=== PATIENT | female | born 1930 | race Caucasian/White ===

== ENCOUNTER → 2016-08-04 | Outpatient (CLI) | payer OTHER | LOC: BHFA 14:15 | PROVIDERS: ATTEND Internal Medicine Cardiovascular Disease | DX: I25.10 Atherosclerotic heart disease of native coronary artery without angina pectoris (principal); Z95.0 Presence of cardiac pacemaker; Z95.1 Presence of aortocoronary bypass graft; R60.9 Edema, unspecified; R06.09 Other forms of dyspnea; Z95.2 Presence of prosthetic heart valve ==

== ENCOUNTER → 2016-08-26 | Outpatient (CLI) | payer OTHER | LOC: BHFA 13:15 | PROVIDERS: ATTEND Internal Medicine Cardiovascular Disease | DX: I35.9 Nonrheumatic aortic valve disorder, unspecified (principal) ==

== ENCOUNTER → 2016-09-02 | Outpatient (CLI) | payer OTHER | LOC: BHFA 14:00 | PROVIDERS: ATTEND Internal Medicine Cardiovascular Disease | DX: I25.10 Atherosclerotic heart disease of native coronary artery without angina pectoris (principal) | CPT/HCPCS: 78452; 93017; A9500; J2785 ==

== ENCOUNTER 2016-10-28 07:51 | Day surgery (SDC) | payer OTHER ==
[2016-10-28] MEDS ORDERED: ASPIRIN EC 325 MG TAB PO ONE ×2 (07:56→08:26)
[2016-10-28] MEDS ORDERED: diphenhydrAMINE 25 MG CAP PO ONE ×2 (07:56→08:26)
[2016-10-28] MEDS ORDERED: NS 1,000 ML IV ONE (07:56)
[2016-10-28] MEDS ORDERED: DIAZEPAM 5 MG TAB PO ONE (07:56)
[2016-10-28] MEDS ORDERED: FAMOTIDINE 20 MG TAB PO ONE (07:56)
--- NOTE | 2016-10-28 08:21 | CPEKG ---
Heart Rate: 60 RR Interval: 1000 P-R Interval: 174 QRSD Interval: 156 QT Interval: 452 QTC Interval: 452 P [place]: 70 QRS [place]: -49 T Wave [place]: 84 EKG Severity - ABNORMAL ECG - EKG Impression: ATRIAL-PACED COMPLEXES EKG Impression: RBBB AND LAFB Electronically Signed By: Peyton Khan 28-Oct-2016 11:52:30
[2016-10-28] MEDS ORDERED: FAMOTIDINE 20 MG TAB ONE (08:26)
[2016-10-28] MEDS ORDERED: DIAZEPAM 5 MG TAB ONE (08:26)
[2016-10-28 08:42] LABS: % IMMATURE GRANULYOCYTES 0.4 % (0.0-1.1); ABSOLUTE IMMATURE GRANULOCYTES 0.03 10^3/uL (0.00-0.10); ADD DIFF? NO; ADD MORPH? NO; ADD SCAN? NO; ATYPICAL LYMPHOCYTE FLAG 0 (0-99); FRAGMENT RBC FLAG 0 (0-99); HEMATOCRIT 35.4 % (38.0-47.0); HEMOGLOBIN 12.5 g/dL (12.6-16.3); LEFT SHIFT FLG 0 (0-99); LIPEMIA HEMOLYSIS FLAG 90 (0-99); MEAN CELL HEMOGLOBIN 32.1 pg (27.9-34.1); MEAN CELL HEMOGLOBIN CONCENTR. 35.3 g/dL (32.4-36.7); MEAN PLATELET VOLUME 9.5 fL (8.7-11.7); PLATELET CLUMPS FLAG 0 (0-99); PLATELET COUNT 165 10^3/uL (150-400); RED BLOOD CELL COUNT 3.89 10^6/uL (4.18-5.33)
[2016-10-28 09:03] LABS: ANION GAP 9 mEq/L (8-16); CALCIUM 9.1 mg/dL (8.5-10.4); CARBON DIOXIDE 21 mEq/l (22-31); CHLORIDE 102 mEq/L (97-110); CHOLESTEROL 174 mg/dL (140-220); CHOLESTEROL/HDL RATIO 2.81 RATIO (1.00-4.44); CREATININE 1.7 mg/dL (0.6-1.0); GLOMERULAR FILTRATION RATE 29; GLUCOSE 115 mg/dL (70-100); HIGH DENSITY LIPOPROTEIN 62 mg/dL (40-85); LDL/HDL RATIO 1.32 RATIO (1.00-3.22); LOW DENSITY LIPOPROTEIN 82 mg/dL (80-100); NON-HIGH DENSITY LIPOPROTEIN 112 mg/dL (90-129); POTASSIUM 4.6 mEq/L (3.5-5.2); SODIUM 132 mEq/L (134-144); TRIGLYCERIDE 153 mg/dL (35-135); VERY LOW DENSITY LIPOPROTEINS 30 mg/dL (8-25)
[2016-10-28 09:11] LABS: INR 1.07 (0.83-1.16); PROTIME(PATIENT) 13.8 SEC (12.0-15.0)
[2016-10-28] MEDS ORDERED: MIDAZOLAM 2 MG/2 ML VIAL ONE (09:37)
[2016-10-28] MEDS ORDERED: LIDOCAINE 1% 300 MG/30 ML SDV ONE (09:37)
[2016-10-28] MEDS ORDERED: IOPAMIDOL (ISOVUE-370) 150 ML BTL IV ONE (09:37)
[2016-10-28] MEDS ORDERED: fentaNYL 100 MCG/2 ML INJ ONE (09:37)
[2016-10-28] MEDS ORDERED: VERAPAMIL 5 MG/2 ML VIAL ONE (09:37)
[2016-10-28] MEDS ORDERED: HEPARIN 10,000 UNIT/10 ML MDV ONE (09:37)
--- NOTE | 2016-10-28 16:03 | CPIP ---
[f rep st] INVASIVE CARDIAC PROCEDURE DATE OF PROCEDURE: 10/28/2016 PROCEDURE: Cancellation of procedure note. HISTORY: The patient is an 86-year-old female with a history of aortic valve disease and coronary a rtery disease, who underwent single-vessel CABG and AVR in 2008, who was admitted for elective cardi ac catheterization to evaluate symptoms of dyspnea on exertion. The patient was recently started on an herbal diuretic from her chiropractor. Her baseline creatinine increased from 1.2 to 1.7 the da y of procedure. I had a discussion with the patient regarding the risks and benefits of cardiac cat heterization in the setting of renal insufficiency. We have decided to cancel the procedure, stop d iuretic therapy, repeat a CHEM 7 on Tuesday, and consider repeat cardiac catheterization the followi ng week if creatinine stabilizes. Patient will call the office for increasing symptoms. She will b e continued on her regular home medications minus the herbal diuretic and Lasix therapy. /[id number]/MODL
== END 2016-10-28 11:00 | disposition home or self-care (01) ==
LOC: FCATH 07:51
PROVIDERS: ATTEND Internal Medicine Cardiovascular Disease
DX: R06.09 Other forms of dyspnea (principal); Z53.09 Procedure and treatment not carried out because of other contraindication; N28.9 Disorder of kidney and ureter, unspecified; I35.1 Nonrheumatic aortic (valve) insufficiency; I25.10 Atherosclerotic heart disease of native coronary artery without angina pectoris; Z95.1 Presence of aortocoronary bypass graft
CPT/HCPCS: J1644; J2250; J3010; Q9967

== ENCOUNTER 2016-11-05 07:50 | Inpatient (IN) | payer OTHER ==
[2016-11-05] MEDS ORDERED: FAMOTIDINE 20 MG TAB PO ONE (07:54)
[2016-11-05] MEDS ORDERED: NS 1,000 ML IV ONE (07:54)
[2016-11-05] MEDS ORDERED: DIAZEPAM 5 MG TAB PO ONE (07:54)
[2016-11-05] MEDS ORDERED: diphenhydrAMINE 25 MG CAP PO ONE (07:54)
[2016-11-05] MEDS ORDERED: ASPIRIN EC 325 MG TAB PO ONE (07:54)
--- NOTE | 2016-11-05 08:17 | CPEKG ---
Heart Rate: 61 RR Interval: 984 P-R Interval: 162 QRSD Interval: 162 QT Interval: 452 QTC Interval: 456 P [place]: 0 QRS [place]: -56 T Wave [place]: 87 EKG Severity - ABNORMAL ECG - EKG Impression: ATRIAL-PACED COMPLEXES EKG Impression: PROBABLE LEFT ATRIAL ABNORMALITY EKG Impression: RBBB AND LAFB Electronically Signed By: Christian Metz 05-Nov-2016 08:57:56
[2016-11-05 08:31] LABS: % IMMATURE GRANULYOCYTES 0.4 % (0.0-1.1); ABSOLUTE IMMATURE GRANULOCYTES 0.03 10^3/uL (0.00-0.10); ADD DIFF? NO; ADD MORPH? NO; ADD SCAN? NO; ATYPICAL LYMPHOCYTE FLAG 0 (0-99); FRAGMENT RBC FLAG 0 (0-99); HEMATOCRIT 36.1 % (38.0-47.0); HEMOGLOBIN 13.1 g/dL (12.6-16.3); LEFT SHIFT FLG 0 (0-99); LIPEMIA HEMOLYSIS FLAG 90 (0-99); MEAN CELL HEMOGLOBIN 32.8 pg (27.9-34.1); MEAN CELL HEMOGLOBIN CONCENTR. 36.3 g/dL (32.4-36.7); MEAN CELL VOLUME 90.3 fL (81.5-99.8); MEAN PLATELET VOLUME 9.5 fL (8.7-11.7); PLATELET CLUMPS FLAG 0 (0-99); PLATELET COUNT 168 10^3/uL (150-400); RED CELL DISTRIBUTION WIDTH 12.7 % (11.5-15.2)
[2016-11-05 08:40] LABS: PROTIME(PATIENT) 13.1 SEC (12.0-15.0)
[2016-11-05 08:47] LABS: ANION GAP 10 mEq/L (8-16); CALCIUM 9.7 mg/dL (8.5-10.4); CARBON DIOXIDE 22 mEq/l (22-31); CHLORIDE 99 mEq/L (97-110); CHOLESTEROL 163 mg/dL (140-220); CHOLESTEROL/HDL RATIO 2.51 RATIO (1.00-4.44); CREATININE 1.4 mg/dL (0.6-1.0); GLOMERULAR FILTRATION RATE 36; GLUCOSE 112 mg/dL (70-100); HIGH DENSITY LIPOPROTEIN 65 mg/dL (40-85); LDL/HDL RATIO 1.15 RATIO (1.00-3.22); LOW DENSITY LIPOPROTEIN 75 mg/dL (80-100); NON-HIGH DENSITY LIPOPROTEIN 98 mg/dL (90-129); POTASSIUM 4.5 mEq/L (3.5-5.2); SODIUM 131 mEq/L (134-144); TRIGLYCERIDE 116 mg/dL (35-135); VERY LOW DENSITY LIPOPROTEINS 23 mg/dL (8-25)
[2016-11-05] MEDS ORDERED: LIDOCAINE 1% 300 MG/30 ML SDV ONE (09:06)
[2016-11-05] MEDS ORDERED: fentaNYL 100 MCG/2 ML INJ ONE (09:06)
[2016-11-05] MEDS ORDERED: IOPAMIDOL (ISOVUE-370) 150 ML BTL IV ONE (09:07)
[2016-11-05] MEDS ORDERED: MIDAZOLAM 2 MG/2 ML VIAL ONE (09:07)
[2016-11-05] MEDS ORDERED: HEPARIN 10,000 UNIT/10 ML MDV ONE (09:07)
[2016-11-05] MEDS ORDERED: VERAPAMIL 5 MG/2 ML VIAL ONE (09:07)
[2016-11-05] MEDS ORDERED: NITROGLYCERIN 1,500 MCG/15 ML VIAL MISC ONE ×2 (09:57→10:08)
[2016-11-05] MEDS ORDERED: TEMAZEPAM 15 MG CAP PO PRN (10:16)
[2016-11-05] MEDS ORDERED: LORazepam 2 MG/ML INJ IVP PRN (10:16)
[2016-11-05] MEDS ORDERED: ONDANSETRON 4 MG/2 ML VIAL IVP PRN (10:16)
[2016-11-05] MEDS ORDERED: NITROGLYCERIN 0.4 MG BTL SL PRN (10:16)
[2016-11-05] MEDS ORDERED: ATROPINE SULFATE 1 MG/10 ML SYR IVP PRN (10:16)
[2016-11-05] MEDS ORDERED: CLOPIDOGREL BISULFATE 75 MG TAB PO ONE (10:16)
[2016-11-05] MEDS ORDERED: CLOPIDOGREL BISULFATE 75 MG TAB ONE (10:19)
--- NOTE | 2016-11-05 10:21 | PDDXCAT ---
Diagnostic Cath Note - . Date: 11/05/16 Genetics Teacher: Feng Indication: Class I/II angina, intolerance to med therapy or failure to respond High-risk criteria on non-invasive testing: stress-induced moderate-size multiple perfusion defects - Procedure Access: right groin Procedure: left heart catheterization, coronary angiography - Materials Left Heart Cath size: 6F Left Heart Cath materials: JL4.0, JR4.0 - Findings-Left Heart Catheterization LM: Unobstructed LAD: Kink proximally with patent mammary artery in the mid LAD and no focal stenosis LCX: Unobstructed RCA: Distal 85% stenosis. Posterior descending coronary artery 85% stenosis. Mid RCA 25% stenosed EDP: Not assessed LVEF: Not assessed Complications: Inability to access the left radial artery limited perforation Estimated blood loss: <50ml Closure method: Angioseal Assessment: 1. Single-vessel coronary disease with critical stenosis of the right coronary artery. 2. Patent mammary artery to the LAD with kink proximally. Plan: Ad Hoc PCI of the right coronary artery Intervention: After reviewing diagnostic angiogram to elected to proceed with PCI of the right coronary artery. The patient was administered heparin. Using a 6 [place] JR4 guiding catheter the right coronary artery was selectively intubated. This cause spasm proximally. She was administered intracoronary nitroglycerin with resolution. Using a 0.014 luge wire the RCA stenosis was crossed and a wire placed in the distal vessel. It was stented with a 2.75 x 12 mm synergy stent. The wire and guide prolapsed out of the vessel. It was reengaged. The vessel was rewired. A 2.25 x 16 mm synergy stent was placed distally and deployed using a single inflation. Repeat angiogram showed GILBERTO grade 3 flow. Final diagnosis: Successful PCI and stenting of the right coronary. Patient Problems: Problems Problem Status Onset S/P right coronary artery (RCA) stent placement Acute Coronary artery arteriosclerosis Acute Bradycardia Acute
--- NOTE | 2016-11-05 10:58 | CPEKG ---
Heart Rate: 60 RR Interval: 1000 P-R Interval: 174 QRSD Interval: 158 QT Interval: 480 QTC Interval: 480 P [place]: 0 QRS [place]: -54 T Wave [place]: 88 EKG Severity - ABNORMAL ECG - EKG Impression: ATRIAL-PACED COMPLEXES EKG Impression: RBBB AND LAFB Electronically Signed By: Christian Metz 05-Nov-2016 12:55:52
[2016-11-06 04:36] LABS: % IMMATURE GRANULYOCYTES 0.4 % (0.0-1.1); ABSOLUTE IMMATURE GRANULOCYTES 0.04 10^3/uL (0.00-0.10); ADD DIFF? NO; ADD MORPH? NO; ADD SCAN? NO; ATYPICAL LYMPHOCYTE FLAG 0 (0-99); FRAGMENT RBC FLAG 0 (0-99); HEMATOCRIT 33.3 % (38.0-47.0); HEMOGLOBIN 11.5 g/dL (12.6-16.3); LEFT SHIFT FLG 0 (0-99); LIPEMIA HEMOLYSIS FLAG 90 (0-99); MEAN CELL HEMOGLOBIN 32.3 pg (27.9-34.1); MEAN CELL HEMOGLOBIN CONCENTR. 34.5 g/dL (32.4-36.7); MEAN CELL VOLUME 93.5 fL (81.5-99.8); MEAN PLATELET VOLUME 9.8 fL (8.7-11.7); PLATELET CLUMPS FLAG 0 (0-99); PLATELET COUNT 155 10^3/uL (150-400); RED BLOOD CELL COUNT 3.56 10^6/uL (4.18-5.33); RED CELL DISTRIBUTION WIDTH 13.2 % (11.5-15.2)
[2016-11-06 04:48] LABS: ALBUMIN 3.6 g/dL (3.5-5.0); ANION GAP 8 mEq/L (8-16); ASPARTATE AMINOTRANSFERASE 31 IU/L (14-46); BILIRUBIN,TOTAL 0.6 mg/dL (0.1-1.4); CALCIUM 8.9 mg/dL (8.5-10.4); CARBON DIOXIDE 21 mEq/l (22-31); CHLORIDE 102 mEq/L (97-110); CREATININE 1.4 mg/dL (0.6-1.0); GLOMERULAR FILTRATION RATE 36; GLUCOSE 94 mg/dL (70-100); LACTATE DEHYDROGENASE 702 IU/L (313-618); MAGNESIUM 2.1 mg/dL (1.6-2.3); POTASSIUM 4.7 mEq/L (3.5-5.2); SODIUM 131 mEq/L (134-144)
[2016-11-06] MEDS: CLOPIDOGREL BISULFATE 75 MG TAB PO SCH (08:32)
[2016-11-06] MEDS: ASPIRIN EC 325 MG TAB PO SCH (08:32)
[2016-11-06] MEDS ORDERED: FUROSEMIDE 20 MG/2 ML VIAL IVP ONE (11:20)
[2016-11-06] MEDS: OLMESARTAN MEDOXOMIL 20 MG TAB PO SCH (11:35)
--- NOTE | 2016-11-06 12:38 | GDS ---
Addended report: please refer to Discharge Summary Report, / [id number]/MODL, ITS #[id number], dictated by dr. Thomas Arana MD, on November; skb. [ rep st] DISCHARGE SUMMARY ADMISSION DIAGNOSES: 1. Shortness of breath. 2. Abnormal stress test. 3. History of coronary artery disease, status post coronary artery bypass grafting in 2008. 4. Aortic valve disease, status post mitral valve, aortic valve, replacement in 2008. 5. Sick sinus syndrome, with remote pacemaker implantation. 6. Previous cerebrovascular accident. 7. Hypertension. 8. Hyperlipidemia. DISCHARGE DIAGNOSES: 1. Shortness of breath. 2. Coronary artery disease, status post coronary artery bypass grafting. 3. Status post percutaneous coronary intervention. Distal right coronary artery with 2 drug eluting stents implantation. 4. Aortic valve disease, status post aortic valve replacement in 2008. 5. Sick sinus syndrome, status post remote pacemaker implantation. 6. Previous cerebrovascular accident. 7. Hypertension. 8. Hyperlipidemia. PROCEDURES DONE DURING HOSPITALIZATION: 1. Electrocardiogram. 2. Diagnostic coronary catheterizations with This graft injection. 3. Percutaneous coronary intervention of distal RCA with implantation of a 2.75 x 12 mm Synergy drug-eluting stent and a 2.25 x 16 Synergy drug-eluting stent. BRIEF HISTORY: The patient is an 86-year-old female, she reports over the last few months she has had increased shortness of breath and fatigue. She had recently underwent MPI study, showing a medium size severe intensity fixed mid to distal anterior septal deficit, consistent with infarction, and moderate anterior septal hypokinesis with severe impaired thickening. Due to her ongoing symptoms, it was felt best that she was evaluated by Jenae Luong NP, in our office, and due to her ongoing symptoms, it was felt that she undergo coronary catheterization for further evaluation of ischemia. HOSPITAL COURSE: Patient was admitted through CVC, prepped for procedure, and taken to the cardiac catheterization lab, there Dr. Shailesh Toney performed a diagnostic heart catheterization, showing left main was unobstructed, LAD had a kink in the proximal, with patent artery to the mid LAD, and no focal stenosis. Circumflex was unobstructed. RCA had a distal 85% stenosis and a PDA branch with an 85% stenosis, mid RCA 25% stenosis. Due to previous valve surgery patient's LV-gram was not performed. The patient was noted to have a single bypass graft, which was noted to be patent, with a kink in the proximal. At that time, it was decided to intervene on her stenosis to her right RCA, in which a 2.75 x 12 and a 2.25 x 16 Synergy stent were deployed into the distal RCA. No complications, patient was transferred back to the CVC, and ultimately to the PCU for overnight observation. She has been remained on continuous report analyst. She has been A-paced with intrinsic ventricular response, showing right bundle branch pattern. She denies any chest pain, reports mild shortness of breath, but denies of any palpitations, lightheadedness, near- syncope or syncopal events. She has been up and walking the unit, reporting mild dyspnea on exertion. She was noted to have mild rales. Today she was given a 20 mg dose of IV Lasix. PHYSICAL EXAMINATION: GENERAL APPEARANCE: Mildly obese, female. She is alert and oriented to person, place, time, situation. Appears to be under no acute distress. VITAL SIGNS: Current vital signs are blood pressure of 144/65, heart rate 60s, respirations 19, saturating 95% on room air. Temperature 36.6 degrees Celsius. HEENT: Head is normocephalic. Lips and tongue are pink and moist with no signs of cyanosis. Conjunctivae pink. NECK: Trachea is midline, +2 carotid pulses bilateral. No auscultated bruits, no jugular vein distention. RESPIRATORY: Faint rales noted in bases bilateral. No rhonchi or wheezing noted. No accessory muscle use. No intercostal muscle retraction noted. CARDIAC: Regular rate, regular rhythm, S1-S2, no S3, S4 noted. +1 to 2 systolic murmur noted at the right upper border. ABDOMEN: Soft , nontender, bowel sounds x4 quadrants. No organomegaly. No palpable masses. SKIN: [place], warm, dry, no cyanosis, no clubbing, no peripheral edema. VASCULAR : +2 carotids bilateral, +2 radials bilateral, +1 posterior tibial pulses bilateral. Catheter insertion site, right groin site, mild ecchymosis but no hematoma noted. No redness, swelling, drainage, bleeding or hematoma noted. No auscultated bruit over site. LABORATORY STUDIES: Drawn today show WBC of 9.52, hemoglobin of 11.5, hematocrit of 33.3, platelet count of 155. Sodium 131, potassium 4.7, chloride 102, CO2 of 22, BUN 31, creatinine 1.4, glucose 94, calcium 8.9, phosphorus 4.5 , magnesium 2.1, total bilirubin 0.6, AST 31, albumin 3.6, fasting lipid panel done yesterday showed triglycerides 116, total cholesterol 163, LDL 75, HDL 65. STUDIES: Diagnostic heart catheterization and percutaneous coronary intervention as mentioned above. A.M. electrocardiogram shows A-paced with intrinsic ventricular beats, right bundle branch block, left anterior fascicular block. DISCHARGE DISPOSITION: Patient will be discharged home in fair condition. She is under activity restrictions of not lifting more than 10 pounds for the next week and no strenuous activity for the next 2 weeks. DISCHARGE MEDICATIONS: Please see discharge med reconciliation sheet, note the patient's home dosing of aspirin has been increased to 325 mg p.o. daily. The patient was noted to be mildly hyponatremic, in reviewing past laboratories for the last year she has been continuously hyponatremic. Her hydrochlorothiazide was discontinued in her Benicar/hydrochlorothiazide dose, she has been asked to resume taking Lasix every day, but only at 10 mg p.o. daily. She remains on anti-platelet therapy of clopidogrel. DISCHARGE INSTRUCTIONS: Post percutaneous coronary intervention discharge instructions went over with the patient including monitoring for signs of infection, bleeding precaution, medication compliancy (the importance of dual anti-platelet therapy with recent YULISSA implantation), and medication compliancy. Our office will call her Tuesday and arrange for her to have a followup visit in 1 weeks time. She has been asked to monitor her weight, do daily blood pressure log, and bring in with her for next office visit. She also was provided a script to get a basic metabolic panel drawn the day before her next office visit. At this time, patient verbalizes understanding of all instructions. She has no questions. We will plan for her to walk around the unit few times, after receiving IV Lasix dosage. Nursing staff will call Dr. Batres, Later this afternoon, if the patient is ready to go. She has been told that if any questions or concerns come up once she goes home she is to call our office or return to the hospital. Total time spent on discharge greater than 30 minutes. /[id number]/MODL Addendum: please refer to Discharge Summary Report, /[id number]/ MODL, ITS #[id number], dictated by dr. Thomas Arana MD, on November; skb. NEAL
[2016-11-06] MEDS ORDERED: NON-FORMULARY NEW DRUG (Simvastatin [Zocor] 20 MG) PO SCH (21:00)
[2016-11-06] MEDS ORDERED: ATORVASTATIN CALCIUM 10 MG TAB PO SCH (21:00)
[2016-11-07] MEDS: ASPIRIN EC 325 MG TAB PO SCH (08:40)
[2016-11-07] MEDS: OLMESARTAN MEDOXOMIL 20 MG TAB PO SCH (08:41)
[2016-11-07] MEDS: CLOPIDOGREL BISULFATE 75 MG TAB PO SCH (08:41)
[2016-11-07] MEDS ORDERED: FUROSEMIDE 20 MG TAB PO SCH (09:00)
[2016-11-07] MEDS ORDERED: CHOLECALCIFEROL VIT D3 2,000 UNITS TAB/CAP PO SCH (09:00)
[2016-11-07 11:03] VITALS: BP 138/62; PULSE 62; RESP 21; TEMP 98; O2SAT 94
--- NOTE | 2016-11-07 13:46 | GDS ---
[f rep st] DISCHARGE SUMMARY REASON FOR ADMISSION: Coronary artery disease. HOSPITAL COURSE: This is an addendum summary. Please refer to recent office note which serves as the H&P for this hospital encounter, previous hospital notes/procedure report, and discharge summary dictated by Kaleb Pinon NP yesterday (November 06, 2016). Briefly, the patient is an 86-year-old woman with a history of CAD, prior single -vessel CABG to the LAD in conjunction with aortic valve replacement. She was scheduled for elective cardiac catheterization on November 05, because of symptoms of dyspnea on exertion and a recent abnormal nuclear stress test. She was found to have high-grade disease in the distal RCA, which was treated with PCI and stent placement. On the day following her procedure, she was feeling fatigued, weak, and unsteady on her feet. Because she lives alone and has no assistance at home, she was kept an additional day to observe her and ensure that she was safe to be discharged home. Today, she ambulated a full lap in the hallway. She had only mild shortness of breath and no oxygen desaturation. She has had no evidence of any complications from her procedure. DISCHARGE MEDICATIONS: Documented in her previous summary. The office staff at [facility] will contact her to arrange for a followup appointment in the near future. /[id number]/MODL MTDD
[2016-11-08] MEDS ORDERED: FUROSEMIDE 20 MG TAB PO SCH (10:37)
--- NOTE | 2016-11-08 11:46 | CPEKG ---
Heart Rate: 61 RR Interval: 984 P-R Interval: 192 QRSD Interval: 160 QT Interval: 440 QTC Interval: 444 P [place]: 61 QRS [place]: -53 T Wave [place]: 92 EKG Severity - ABNORMAL ECG - EKG Impression: ATRIAL-PACED COMPLEXES EKG Impression: RBBB AND LAFB Electronically Signed By: Chu Cedeno 08-Nov-2016 11:53:23
== END 2016-11-07 13:02 | disposition home or self-care (01) | DRG 229 ==
LOC: FCATH 07:50 → F2W 10:16 → OBSVTOIN 11-06 16:52
PROVIDERS: ADMIT Internal Medicine Interventional Cardiology; ATTEND Internal Medicine
PROC: B2181ZZ Fluoroscopy of Left Internal Mammary Bypass Graft using Low Osmolar Contrast (ICD-10-PCS; principal; 2016-11-05)
PROC: B2151ZZ Fluoroscopy of Left Heart using Low Osmolar Contrast (ICD-10-PCS; principal; 2016-11-05)
PROC: 027 Heart and Great Vessels, Dilation (ICD-10-PCS; principal; 2016-11-05)
PROC: 4A023N7 Measurement of Cardiac Sampling and Pressure, Left Heart, Percutaneous Approach (ICD-10-PCS; principal; 2016-11-05)
PROC: B2111ZZ Fluoroscopy of Multiple Coronary Arteries using Low Osmolar Contrast (ICD-10-PCS; principal; 2016-11-05)
DX: I25.10 Atherosclerotic heart disease of native coronary artery without angina pectoris (principal); I10 Essential (primary) hypertension; E78.5 Hyperlipidemia, unspecified; Z95.1 Presence of aortocoronary bypass graft; Z95.0 Presence of cardiac pacemaker; Z95.3 Presence of xenogenic heart valve
CPT/HCPCS: C1760; C1769; C1874; C1887; C9600; J1644; J1940; J2250; J3010; Q9967

== ENCOUNTER → 2017-12-08 | Outpatient (CLI) | payer OTHER | LOC: BMCIMAGING 12:37 | PROVIDERS: ATTEND Internal Medicine | DX: M47.892 Other spondylosis, cervical region (principal); M47.894 Other spondylosis, thoracic region; M19.012 Primary osteoarthritis, left shoulder; M19.011 Primary osteoarthritis, right shoulder; M75.102 Unspecified rotator cuff tear or rupture of left shoulder, not specified as traumatic; M75.101 Unspecified rotator cuff tear or rupture of right shoulder, not specified as traumatic ==